=== PATIENT | female | born 1955 | race Caucasian/White ===

== ENCOUNTER 2016-12-13 22:54 | Emergency (ER) | payer BC ==
[2016-12-14 00:18] VITALS: BP 106/74
[2016-12-14] MEDS ORDERED: Sodium Chloride 0.9% 10 ML Syringe FLUSH PRN (00:31)
[2016-12-14] MEDS ORDERED: Ondansetron 4 MG/2 ML SDV IVPUSH ONE (00:32)
[2016-12-14] MEDS ORDERED: Sodium Chloride 0.9% 1,000 ML IV SCH (00:45)
[2016-12-14 00:50] LABS: CHLORIDE,CL 109 mmol/L (98-107); SODIUM,NA 143 mmol/L (136-145)
--- NOTE | 2016-12-14 00:52 | EDM.PDOC ---
ED HPI GENERAL MEDICAL PROBLEM - General Chief Complaint: Abdominal Pain Stated Complaint: Epigastric Pain Time Seen by Provider: 12/13/16 23:10 Source of Information: Reports: Patient, Family, RN, RN Notes Reviewed History Limitations: Reports: No Limitations - History of Present Illness INITIAL COMMENTS - FREE TEXT/NARRATIVE: Patient presents to the emergency room at [facility] complaining of epigastric pain. The patient states that she has a long-standing history of cholelithiasis. The patient states her first gallbladder attack was last month. The patient states she had 2 separate episodes. The patient states that her ultrasound did show gallstones. The patient was seen by a surgeon who did not opt to remove the gallbladder at that time. The patient states that her current episode began earlier this evening. The patient states that her epigastric pain did resolve once she got to the emergency room. The patient states that she has felt very nauseated. The patient denies any diarrhea. The patient states that she has severely modified her diet about 3 months ago. The patient is unaware of any food triggers since she has changed her diet. The patient denies any alcohol use. Onset: Today Onset Date: 12/13/16 Duration: Colic, Waxing/Waning Location: Reports: Other (Epigastric) Quality: Reports: Burning, Dull, Same as Previous Episode Severity: Moderate Improves with: Reports: Rest Worsens with: Reports: Eating, Movement Context: Denies: Activity, Exercise, Lifting, Sick Contact, Trauma Associated Symptoms: Reports: Nausea/Vomiting Upper Mid-Sternal Abdominal Pain Score (Numeric/FACES): 2 - Related Data Allergies Allergy/AdvReac Type Severity Reaction Status Date / Time No Known Allergies Allergy Verified 11/14/16 13:41 Home Meds: Home Meds Aspirin [Lo-Dose Aspirin EC] 81 mg PO DAILY 12/14/16 [History] Black Cohosh Root [Black Cohosh] 200 mg PO DAILY 12/14/16 [History] DULoxetine [Cymbalta] 30 mg PO DAILY 12/14/16 [History] Zolpidem Tartrate [Zolpidem Tartrate] 5 mg PO DAILY 12/14/16 [History] ED ROS GENERAL - Review of Systems Review Of Systems: See Below Constitutional: Denies: Fever, Chills, Weakness Respiratory: Denies: Shortness of Breath, Cough Cardiovascular: Denies: Chest Pain, Palpitations GI/Abdominal: Reports: Abdominal Pain, Nausea, Vomiting. Denies: Black Stool, Bloody Stool, Diarrhea Skin: Reports: No Symptoms Neurological: Reports: No Symptoms. Denies: Dizziness, Headache ED EXAM, GI/ABD - Physical Exam Exam: See Below Exam Limited By: No Limitations General Appearance: Alert, No Apparent Distress Respiratory/Chest: No Respiratory Distress, Lungs Clear, Normal Breath Sounds Cardiovascular: Regular Rate, Rhythm GI/Abdominal: Normal Bowel Sounds, Soft, Tenderness (epigastric on deep palpation) Neurological: Alert, Oriented Skin Exam: Warm, Dry, Intact, Normal Color, No Rash Course - Vital Signs Last Recorded V/S: Last Vital Signs Temp 35.7 C 12/14/16 00:15 Pulse 75 12/14/16 00:15 Resp 20 12/14/16 00:15 BP 106/74 12/14/16 00:15 Pulse Ox 99 12/14/16 00:15 - Orders/Labs/Meds Orders: Active Orders 24 hr Category Date Time Status Sodium Chloride 0.9% [Normal Saline] 1,000 ml Med 12/14/16 00:45 Active IV ASDIRECTED Sodium Chloride 0.9% [Saline Flush] Med 12/14/16 00:31 Active 10 ml FLUSH ASDIRECTED PRN Peripheral IV Insertion Adult [OM.PC] Routine Oth 12/14/16 00:31 Ordered Medication Orders Sodium Chloride (Normal Saline) 1,000 mls @ 999 mls/hr IV ASDIRECTED DARREN Sodium Chloride (Saline Flush) 10 ml FLUSH ASDIRECTED PRN PRN Reason: Keep Vein Open Labs: Laboratory Tests 12/14/16 12/14/16 12/14/16 Range/Units 00:25 00:25 00:25 WBC 8.9 (4.0-10.0) x10^3/uL RBC 4.51 (4.00-5.50) x10^6/uL Hgb 13.0 (12.0-16.0) g/dL Hct 39.2 (33.0-47.0) % MCV 86.9 (78.0-93.0) fL MCH 28.8 (26.0-32.0) pg MCHC 33.2 (32.0-36.0) g/dL RDW Coeff of South 13.3 (10.0-15.0) % Plt Count 228 (130-400) x10^3/uL Neut % (Auto) 80.9 H (50.0-80.0) % Lymph % (Auto) 11.7 L (25.0-50.0) % Perry % (Auto) 6.2 (2.0-11.0) % Eos % (Auto) 0.9 (0.0-4.0) % Baso % (Auto) 0.3 (0.2-1.2) % Sodium 143 (136-145) mmol/L Potassium 4.1 (3.5-5.1) mmol/L Chloride 109 H (98-107) mmol/L Carbon Dioxide 27 (21-32) mmol/L BUN 20 H (7-18) mg/dL Creatinine 0.8 (0.55-1.02) mg/dL Est Cr Clr Drug Dosing 59.89 mL/min Estimated GFR (MDRD) > 60 Glucose 105 (74-106) mg/dL Calcium 8.7 (8.5-10.1) mg/dL Corrected Calcium 9.02 (8.5-10.1) mg/dL Total Bilirubin 0.3 (0.2-1.0) mg/dL AST 129 H (15-37) U/L ALT 98 H (14-59) U/L Alkaline Phosphatase 126 H (46-116) U/L Total Protein 7.0 (6.4-8.2) g/dL Albumin 3.6 (3.4-5.0) g/dL Globulin 3.4 Albumin/Globulin Ratio 1.06 Amylase 51 (25-115) U/L Lipase 212 (73-393) U/L Meds: Medications Generic Name Dose Route Start Last Admin Trade Name Freq PRN Reason Stop Dose Admin Sodium Chloride 1,000 mls @ 999 mls/hr 12/14/16 00:45 Normal Saline IV ASDIRECTED DARERN Sodium Chloride 10 ml 12/14/16 00:31 Saline Flush FLUSH ASDIRECTED PRN Keep Vein Open Discontinued Medications Generic Name Dose Route Start Last Admin Trade Name Freq PRN Reason Stop Dose Admin Ondansetron HCl 4 mg 12/14/16 00:32 Zofran IVPUSH 12/14/16 00:33 ONETIME ONE Departure - Departure Time of Disposition: 01:11 Disposition: Home, Self-Care 01 Condition: good Clinical Impression: Elevated liver enzymes Abdominal pain Qualifiers: Abdominal location: right upper quadrant Qualified Code(s): R10.11 - Right upper quadrant pain - Discharge Information Referrals: Chasidy Olvera MD [Physician] - Forms: ED Department Discharge Additional Instructions: 1. Stay well hydrated and rest 2. See Dr. Olvera for follow up - Problem List Review Problem List Initiated/Reviewed/Updated: Yes - My Orders Last 24 Hours: My Active Orders 12/14/16 00:31 Sodium Chloride 0.9% [Saline Flush] 10 ml FLUSH ASDIRECTED PRN Peripheral IV Insertion Adult [OM.PC] Routine 12/14/16 00:45 Sodium Chloride 0.9% [Normal Saline] 1,000 ml IV ASDIRECTED - Assessment/Plan Last 24 Hours: My Active Orders 12/14/16 00:31 Sodium Chloride 0.9% [Saline Flush] 10 ml FLUSH ASDIRECTED PRN Peripheral IV Insertion Adult [OM.PC] Routine 12/14/16 00:45 Sodium Chloride 0.9% [Normal Saline] 1,000 ml IV ASDIRECTED
== END 2016-12-14 01:26 | disposition home or self-care (01) ==
LOC: VM.ED 22:54
DX: R10.11 Right upper quadrant pain (principal); R74.8 Abnormal levels of other serum enzymes; Z79.82 Long term (current) use of aspirin; Z79.899 Other long term (current) drug therapy
CPT/HCPCS: 36415; 80053; 82150; 83690; 85025; 96361; 96374; 99283; J2405; J7030

== ENCOUNTER 2017-01-02 07:37 | Day surgery (SDC) | payer BC ==
[~2017-01-02 07:37] MED LIST: Lactated Ringers 1,000 ML IV SCH
[2017-01-02] MEDS ORDERED: fentaNYL 100 MCG/2 ML SDV ONE (09:02)
[2017-01-02] MEDS ORDERED: Propofol 200 MG/20 ML SDV ONE (09:02)
[2017-01-02 11:10] VITALS: BP 123/82
--- NOTE | 2017-01-02 12:09 | OR ---
PREOPERATIVE DIAGNOSIS: Epigastric pain. POSTOPERATIVE DIAGNOSIS: Normal exam esophagus, stomach, and duodenum. PROCEDURE PROPOSED: Upper gastrointestinal panendoscopy with antral biopsy. PROCEDURE DONE: Upper gastrointestinal panendoscopy with antral biopsy. INDICATION: This is a 61-year-old female, who has had 3 episodes of significant epigastric pain with pressure and some nausea and pain into the back. She was found to have gallstones. It is felt that she likely is having a gallbladder issue, but it is felt that her stomach should be evaluated to rule out gastric or esophageal issues. TECHNIQUE: The patient was brought to the endoscopy suite, placed in left lateral decubitus position. She was sedated with propofol per [employer]. The flexible video gastroscope was then passed transorally and under visualization advanced well into the duodenum. The duodenal and the duodenal bulb were then unremarkable. The pylorus, antrum, and body of the stomach appeared very healthy and a CLOtest was obtained from the antrum. The GE junction did not reveal any hiatal hernia. There was no evidence of any acid reflux. The GE junction was well demarcated and the remainder of esophagus was normal. The scope was then withdrawn. The patient tolerated the procedure well. IMPRESSION: Essentially normal exam of the esophagus, stomach, and duodenum. PLAN: I do feel that I am quite confident it is her gallstones creating these episodes of pain and discomfort and that would benefit with gallbladder removal and this will be arranged for her at her earliest convenience. SCM: 01/02/2017 09:50:44 MODL: 01/02/2017 12:03:18 /[id number]
== END 2017-01-02 10:50 | disposition home or self-care (01) ==
LOC: VM.SDS 07:37
PROVIDERS: ATTEND Surgery
DX: K80.12 Calculus of gallbladder with acute and chronic cholecystitis without obstruction (principal); R10.13 Epigastric pain; R11.0 Nausea; F41.9 Anxiety disorder, unspecified; E78.5 Hyperlipidemia, unspecified; Z79.82 Long term (current) use of aspirin; Z79.899 Other long term (current) drug therapy; Z98.890 Other specified postprocedural states
CPT/HCPCS: 43239; J2704; J7120; J3010